=== PATIENT | female | born 1995 | race Caucasian/White ===

== ENCOUNTER 2017-04-24 02:07 | Emergency (ER) | payer OTHER ==
[2017-04-24 03:01] VITALS: BMI 31.4
--- NOTE | 2017-04-24 03:10 | PDOC ---
History of Present Illness - General History Source: Patient Exam Limitations: No Limitations - History of Present Illness Initial Comments: 04/24/17 03:28 The patient is a 21 year old female with a significant PMH of asthma and anemia who presents to the emergency department with fever TMax 102.8, generalized body aches, sore throat, 3 episodes of NB, NB vomit, cough and runny nose for the past three days. The patient notes mild pain when swallowing and has been unable to tolerate fluid intake. The patient states she has not taken any medications. The patient denies any sick contacts. The patient reports her LMP was in January. The patient denies chest pain, shortness of breath, headache and dizziness. Denies chills, nausea, diarrhea and constipation. Denies dysuria, frequency, urgency and hematuria. Allergies: NKA Past surgical history: None reported. Social history: No reported alcohol, cigarette, or drug use. PCP: Dr. Reese <Sophie Vallecillo - Last Filed: 04/24/17 03:24> <Jayda Thompson - Last Filed: 04/25/17 04:34> - General Chief Complaint: SIRS, Suspected/Possible Stated Complaint: FEVER/ VOMITING Time Seen by Provider: 04/24/17 02:49 Past History <Sophie Vallecillo - Last Filed: 04/24/17 03:24> - Suicide/Smoking/Psychosocial Hx Smoking History: Never smoked Have you smoked in the past 12 months: No Information on smoking cessation initiated: No Hx Alcohol Use: No Drug/Substance Use Hx: No <Jayda Thompson - Last Filed: 04/25/17 04:34> - Past Medical History Allergies/Adverse Reactions: Allergies Allergy/AdvReac Type Severity Reaction Status Date / Time No Known Allergies Allergy Verified 04/24/17 02:50 Home Medications: Ambulatory Orders Ibuprofen [Motrin -] 600 mg PO TID #21 tablet 04/24/17 Review of Systems - Review of Systems Able to Perform ROS?: Yes Comments:: 04/24/17 03:24 GENERAL/CONSTITUTIONAL: (+) Fever. (+) Generalized body aches. No chills. No weakness. HEAD, EYES, EARS, NOSE AND THROAT: (+) Sore throat. No change in vision. No ear pain or discharge. No sore throat. CARDIOVASCULAR: No chest pain or shortness of breath. RESPIRATORY: (+) Cough. (+) Runny nose. No wheezing or hemoptysis. GASTROINTESTINAL: No nausea, vomiting, diarrhea or constipation. GENITOURINARY: No dysuria, frequency, or change in urination. MUSCULOSKELETAL: No joint or muscle swelling or pain. No neck or back pain. SKIN: No rash NEUROLOGIC: No headache, vertigo, loss of consciousness, or change in strength/ sensation. ENDOCRINE: No increased thirst. No abnormal weight change. HEMATOLOGIC/LYMPHATIC: No anemia, easy bleeding, or history of blood clots. ALLERGIC/IMMUNOLOGIC: No hives or skin allergy. <Sophie Vallecillo - Last Filed: 04/24/17 03:24> *Physical Exam - Vital Signs Last Vital Signs Temp Pulse Resp BP Pulse Ox 102.8 F H 119 H 22 110/71 100 04/24/17 02:47 04/24/17 02:47 04/24/17 02:47 04/24/17 02:47 04/24/17 02:47 - Physical Exam Comments: 04/24/17 03:28 GENERAL: Awake, alert, and fully oriented, in no acute distress HEAD: No signs of trauma EYES: PERRLA, EOMI, sclera anicteric, conjunctiva clear ENT: Auricles normal inspection, hearing grossly normal, nares patent, oropharynx clear without exudates. Moist mucosa NECK: Normal ROM, supple, no lymphadenopathy, JVD, or masses LUNGS: Breath sounds equal, clear to auscultation bilaterally. No wheezes, and no crackles HEART: Regular rate and rhythm, normal S1 and S2, no murmurs, rubs or gallops ABDOMEN: Soft, nontender, normoactive bowel sounds. No guarding, no rebound. No masses EXTREMITIES: Normal range of motion, no edema. No clubbing or cyanosis. No cords, erythema, or tenderness NEUROLOGICAL: Cranial nerves II through XII grossly intact. Normal speech, normal gait SKIN: Warm, Dry, normal turgor, no rashes or lesions noted. <Sophie Vallecillo - Last Filed: 04/24/17 03:24> - Vital Signs Last Vital Signs Temp Pulse Resp BP Pulse Ox 102.8 F H 119 H 22 110/71 100 04/24/17 02:47 04/24/17 02:47 04/24/17 02:47 04/24/17 02:47 04/24/17 02:47 <Jayda Thompson - Last Filed: 04/25/17 04:34> ED Treatment Course - LABORATORY CBC & Chemistry Diagram: 04/24/17 03:30 04/24/17 04:00 <Jayda Thompson - Last Filed: 04/25/17 04:34> Medical Decision Making - Medical Decision Making 04/25/17 04:33 Pt comes with fever and feeling ill. SHe has a positive strep throat. CXR is normal. Pt appears well otherwise. She is febrile and weak as she is dehydrated and she has taken nothing for the fever. Pt was treated here with LA bicillin and IV hydration and analgesics and antipyretics. She is stable and improved after treatment and she is ready to go home. <Jayda Thompson - Last Filed: 04/25/17 04:34> *DC/Admit/Observation/Transfer - Attestations Scribe Attestion: 04/24/17 03:28 Documentation prepared by Sophie Vallecillo, acting as electromedical service engineer for Jayda Thompson MD. <Sophie Vallecillo - Last Filed: 04/24/17 03:24> - Discharge Dispostion Admit: No <Jayda Thompson - Last Filed: 04/25/17 04:34> Diagnosis at time of Disposition: Strep throat - Discharge Dispostion Disposition: HOME Condition at time of disposition: Improved - Prescriptions Prescriptions: Ibuprofen [Motrin -] 600 mg PO TID #21 tablet - Referrals Referrals: Luis Johnson MD [Primary Care Provider] - - Patient Instructions Printed Discharge Instructions: DI for Strep Throat - Post Discharge Activity Forms/Work/School Notes: Back to Work
[2017-04-24] MEDS ORDERED: SODIUM CHLORIDE 0.9% 500 ML INFUS.BAG IV ONE (03:11)
[2017-04-24] MEDS ORDERED: IBUPROFEN 600 MG TABLET (FP) PO ONE (03:12)
[2017-04-24] MEDS ORDERED: ACETAMINOPHEN 1000 MG/100 ML VIAL (NON FORMULARY) IVPB ONE (03:12)
[2017-04-24] MEDS ORDERED: ACETAMINOPHEN INJECTION 100 ML IVPB ONE (03:48)
[2017-04-24 04:02] LABS: BASO % 0.3 % (0-2.0); EOS % 0.2 % (0-4.5); HEMATOCRIT 32.2 % (32.4-45.2); HEMOGLOBIN 9.9 GM/dL (10.7-15.3); LYMPH % 10.6 % (8-40); MCHC 30.7 g/dl (32.0-36.0); MEAN CELL VOLUME 63.1 fl (80-96); MEAN PLT VOLUME 9.1 fl (7.5-11.1); MONO % 8.7 % (3.8-10.2); NEUT % 80.2 % (42.8-82.8); PLATELET COUNT 286 K/MM3 (134-434); RBC 5.11 M/mm3 (3.60-5.2); RDW 19.7 % (11.6-15.6); WHITE BLOOD COUNT 10.9 K/mm3 (4.0-10.0)
[2017-04-24 04:03] LABS: MCH 19.3 pg (25.7-33.7)
[2017-04-24 04:18] LABS: INR 1.29 (0.82-1.09); PROTHROMBIN TIME (PATIENT) 14.6 SEC (9.98-11.88)
[2017-04-24] MEDS ORDERED: PENICILLIN G BENZATHINE 1,200,000 UNIT/2 ML PFS IM ONE (04:25)
[2017-04-24] MEDS ORDERED: PENICILLIN G BENZATHINE 2,400,000 UNIT/4 ML PFS ONE (04:29)
[2017-04-24 04:44] LABS: ALBUMIN 3.6 g/dl (3.4-5.0); ALK PHOS 94 U/L (45-117); ANION GAP 9 (8-16); BILIRUBIN,TOTAL 0.5 mg/dL (0.2-1.0); BLOOD UREA NITROGEN 13 mg/dL (7-18); CALCIUM 8.1 mg/dL (8.5-10.1); CHLORIDE 105 mmol/L (98-107); CO2 22 mmol/L (21-32); CREATININE 0.8 mg/dL (0.55-1.02); GLUCOSE,RANDOM 86 mg/dL (74-106); POTASSIUM 3.9 mmol/L (3.5-5.1); SGOT/AST 25 U/L (15-37); SGPT/ALT 25 U/L (12-78); SODIUM 136 mmol/L (136-145); TOT PROT 8.2 g/dl (6.4-8.2)
[2017-04-24 05:56] VITALS: BP 103/65; PULSE 99; TEMP 99
== END 2017-04-24 05:56 | disposition home or self-care (01) ==
LOC: JER 02:07 → SUPCPDRO 02:07 → JER 05:56
PROC: 3E033NZ Introduction of Analgesics, Hypnotics, Sedatives into Peripheral Vein, Percutaneous Approach (ICD-10-PCS; principal; 2017-04-24)
PROC: 3E02329 Introduction of Other Anti-infective into Muscle, Percutaneous Approach (ICD-10-PCS; 2017-04-24)
DX: J02.0 Streptococcal pharyngitis (principal); B95.0 Streptococcus, group A, as the cause of diseases classified elsewhere
CPT/HCPCS: 36415; 71046-TC-FY; 80053; 84703; 85025; 85610; 85730; 87070; 87430; 96372; 96374; 99283-25

== ENCOUNTER 2018-10-02 14:45 | Emergency (ER) | payer OTHER ==
[2018-10-02 15:02] VITALS: BP 118/67; PULSE 70; TEMP 98.2; BMI 36.6
--- NOTE | 2018-10-02 15:02 | PDOC ---
Rapid Medical Evaluation Medical Evaluation: Allergies Allergy/AdvReac Type Severity Reaction Status Date / Time pineapple Allergy Mild Itching Verified 12/18/17 18:44 I have performed a brief in-person evaluation of this patient. The patient presents with a chief complaint of: c/o lower abd pain and back pain x 2 weeks; gave in january and states has not yet had her menstrual cycles; denies hx of PCOS; is not on control; denies n/v/d, urinary complaints; no abd surgeries Pertinent physical exam findings: In nad, abdomen soft/NT I have ordered the following: labs The patient will proceed to the ED for further evaluation. 10/02/18 15:00
--- NOTE | 2018-10-02 18:04 | PDOC ---
Documentation entered by Candi Diaz SCRIBE, acting as scribe for Ramírez Garcia MD. Ramírez Garcia MD: This documentation has been prepared by the noraibe, Candi Diaz SCRIBE, under my direction and personally reviewed by me in its entirety. I confirm that the documentation accurately reflects all work, treatment, procedures, and medical decision making performed by me. Attending Attestation - Resident Resident Name: Odessa Ledesma - ED Attending Attestation I have performed the following: I have examined & evaluated the patient, The case was reviewed & discussed with the resident, I agree w/resident's findings & plan, Exceptions are as noted - HPI HPI: 10/02/18 17:56 The patient is a 23-year-old female, , with a past medical history of von willebrand disease and asthma, who presents to the ED with suprapubic pain. The patient describes the pain as intermittent, crampy in sensation, lasting a few hours at a time, with radiation to her back, exacerbated when she lies on her side, and accompanied by intermittent nausea. She states that the pain is similar to her period pain; LMP was 8 month ago. She has not taken a home test. She denies any vaginal bleeding or vaginal discharge. The patient denies fevers, chills, nausea, vomiting, diarrhea, or abdominal pain. Denies any chest pain, palpitations or shortness of breath. Denies any urinary symptoms. Allergies: Pineapple PCP: Dr. Johnson - Physicial Exam PE: 10/02/18 17:59 GENERAL: Awake, alert, and fully oriented, in no acute distress. HEAD: No signs of trauma EYES: PERRLA, EOMI, sclera anicteric, conjunctiva clear ENT: Auricles normal inspection, hearing grossly normal, nares patent, oropharynx clear without exudates. Moist mucosa NECK: Nontender, no stepoffs, Normal ROM, supple, no lymphadenopathy, JVD, or masses LUNGS: Breath sounds equal, clear to auscultation bilaterally. No wheezes, and no crackles HEART: Regular rate and rhythm, normal S1 and S2, no murmurs, rubs or gallops ABDOMEN: + suprapubic and LLQ TTP, normoactive bowel sounds. No guarding, no rebound. No masses EXTREMITIES: Normal range of motion, no edema. No clubbing or cyanosis. No cords, erythema, or tenderness NEUROLOGICAL: Cranial nerves II through XII intact. 5/5 strength and sensation in all extremities, Normal speech, normal gait, normal cerebellar function SKIN: Warm, Dry, normal turgor, no rashes or lesions noted. - Medical Decision Making 10/02/18 18:05 23 F with suprapubic pain and LLQ pain. Will check test to r/o ectopic. Also consider torsion. Pt with no RLQ pain to suggest appy. - Labs, UA, UPT - TVUS - COnsider CT Pt signed out to Dr. Long at 7PM, pending labs, US, and re-evaluation.
[2018-10-02] MEDS ORDERED: ACETAMINOPHEN 500 MG TABLET (FP) PO ONE (18:06)
[2018-10-02 18:22] LABS: URINE APPEARANCE CLEAR; URINE BILIRUBIN NEGATIVE (NEGATIVE); URINE COLOR YELLOW; URINE GLUCOSE (UA) NEGATIVE (NEGATIVE); URINE KETONE NEGATIVE (NEGATIVE); URINE LEUK ESTERASE NEGATIVE (NEGATIVE); URINE NITRITE NEGATIVE (NEGATIVE); URINE PROTEIN NEGATIVE (NEGATIVE); URINE UROBILINOGEN 0.2 mg/dL (0.2-1.0)
[2018-10-02] MEDS ORDERED: ACETAMINOPHEN 325 MG TABLET (FP) ONE (18:27)
[2018-10-02 19:37] LABS: BASO % 0.6 % (0-2.0); HEMATOCRIT 44.4 % (32.4-45.2); HEMOGLOBIN 14.7 GM/dL (10.7-15.3); LYMPH % 45.8 % (8-40); MCH 27.6 pg (25.7-33.7); MCHC 33.1 g/dl (32.0-36.0); MEAN CELL VOLUME 83.5 fl (80-96); MEAN PLT VOLUME 10.3 fl (7.5-11.1); MONO % 10.5 % (3.8-10.2); NEUT % 40.1 % (42.8-82.8); PLATELET COUNT 257 K/MM3 (134-434); RBC 5.31 M/mm3 (3.60-5.2); RDW 14.2 % (11.6-15.6); WHITE BLOOD COUNT 4.6 K/mm3 (4.0-10.0)
--- NOTE | 2018-10-02 19:41 | PDOC ---
History of Present Illness - General Chief Complaint: Pain Stated Complaint: BACK/ABD PAIN Time Seen by Provider: 10/02/18 14:59 - History of Present Illness Initial Comments: 10/02/18 19:31 23yo F hx Von Willebrand disease and asthma presents from home c/o lower abdominal pain x2wks and amenorrhea since of daughter 02/11/19. Pt had normal with vaginal delivery on 02/11/19. Pt did take unknown medication during to prevent bleeding due to VWD. Since the , pt has not had a menstrual period but has been sexually active without use of contraception. Pt states periods were normal monthly prior to . Pt denies any possibility of STD. Pt has not taken test because last time she was the urine test was negative but the blood test was positive. Pt c/o suprapubic pain, L>R, radiating to b/l flanks, worse at night but happens intermittently both day and night randomly, daily, lasting a few hours each time, temporarily improved with tylenol, cramp type like periods , worse when lying on side. Endorses intermittent nausea as well. States these sx feel exactly like how she felt when she was before. Endorses weight gain and fatigue. Denies dysuria, hematuria, vaginal bleeding, vaginal discharge , vaginal odor, CP, SOB, dizziness, BRITT, D/C, blood in stool, vomiting, F/C. Past History - Past Medical History Allergies/Adverse Reactions: Allergies Allergy/AdvReac Type Severity Reaction Status Date / Time pineapple Allergy Mild Itching Verified 10/02/18 15:03 Home Medications: Ambulatory Orders Doxycycline Hyclate 100 mg PO BID 14 Days #27 capsule 10/02/18 Metronidazole 500 mg PO BID 14 Days #27 tablet 10/02/18 Anemia: Yes Asthma: Yes Cancer: No Cardiac Disorders: No CVA: No COPD: No DVT: No Dementia: No Diabetes: No Dialysis: No GI Disorders: No Disorders: No HTN: No Hypercholesterolemia: No Kidney Stones: No Liver Disease: No Psychiatric Problems: No Seizures: No Thyroid Disease: No Lung CA: No - Suicide/Smoking/Psychosocial Hx Smoking History: Never smoked Have you smoked in the past 12 months: No Information on smoking cessation initiated: No Hx Alcohol Use: No Drug/Substance Use Hx: No Substance Use Type: None Review of Systems - Review of Systems Comments:: 10/02/18 19:46 Constitutional: Negative for chills, fever, fatigue. HENT: Negative for sore throat, rhinorrhea, congestion. Eyes: Negative for visual disturbance. Respiratory: Negative for shortness of breath, cough, and wheezing. Cardiovascular: Negative for chest pain, palpitations, and leg swelling. Gastrointestinal: Positive for abdominal pain and nausea. Negative for blood in stool, constipation, diarrhea, and vomiting. Genitourinary: Positive for b/l flank pain. Negative for dysuria and hematuria. Musculoskeletal: Negative for myalgias, back pain, and neck pain. Skin: Negative for rash. Neurological: Negative for light-headedness, dizziness, syncope, weakness, numbness and headaches. Psychiatric/Behavioral: Negative for behavioral problems and confusion. *Physical Exam - Vital Signs Last Vital Signs Temp Pulse Resp BP Pulse Ox 98.2 F 70 19 118/67 100 10/02/18 15:00 10/02/18 15:00 10/02/18 15:00 10/02/18 15:00 10/02/18 15:00 - Physical Exam Comments: 10/02/18 19:47 Gen: Alert, NAD, comfortable-appearing, obese HEENT: PERRL, EOMI, MMM, NCAT. No conjunctival pallor. Sclera are non-icteric. Oropharynx is clear. CV: Regular rate and rhythm. No murmurs, rubs, or gallops. PULM: No resp distress. CTAB, no wheezes, rales, or rhonchi. ABD: +suprapubic TTP L/central >R, nongravid, soft, ND, no rebound tenderness or guarding, no CVA tenderness. BACK: No TTP of c/t/l-spine. No step-offs or deformities. MSK: No bony deformities. 2+ pulses in all extremities. NEURO: AAOx3. PERRL. No gross CN deficits. Strength and sensation grossly intact throughout. EXTREMITIES: No cyanosis. No clubbing. No edema. No calf tenderness. PSYCH: Normal mood and thought pattern. SKIN: Warm and dry. Normal capillary refill. No rashes. No jaundice. ED Treatment Course - LABORATORY CBC & Chemistry Diagram: 10/02/18 18:55 10/02/18 18:55 - ADDITIONAL ORDERS Additional order review: Laboratory Results 10/02/18 10/02/18 17:50 17:50 Urine Color Yellow Urine Appearance Clear Urine pH 6.0 Ur Specific [place] 1.022 Urine Protein Negative Urine Glucose (UA) Negative Urine Ketones Negative Urine Blood Negative Urine Nitrite Negative Urine Bilirubin Negative Urine Urobilinogen 0.2 Ur Leukocyte Esterase Negative Urine HCG, Qual Negative - RADIOLOGY Radiology Studies Ordered: Category Date Time Status TRANSVAGINAL ULTRASOUND US [US] Stat Ultrasound 10/02/18 19:20 Ordered - Medications Given in the ED: ED Medications Discontinued Medications Generic Name Dose Route Start Last Admin Trade Name Freq PRN Reason Stop Dose Admin Acetaminophen 1,000 mg 10/02/18 18:06 10/02/18 18:40 Tylenol - PO 10/02/18 18:07 1,000 mg ONCE ONE Administration Medical Decision Making - Medical Decision Making 10/02/18 19:41 23yo F hx Von Willebrand disease and asthma presents from home with suprapubic and LLQ intermittent cramping abdominal pain and TTP radiating to b/ l flanks x2wks and amenorrhea since of daughter 02/11/19. Hemodynamically stable, afebrile, nongravid abdomen, suprapubic TTP L/central>R. Most likely pelvic etiology: consider IUP vs ectopic vs ovarian torsion vs cyst vs fibroids vs urethritis/cervicitis/PID - labs, TVUS, pelvic. If negative, consider renal or GI etiology including kidney stones and colitis, though less likely due to suprapubic location of pain and lack of diarrhea/constipation, vomiting, hx kidney stones. -CBC, CMP, Lipase, Coags, T&S, UPreg, UA/UC, HCG quant -Abdominal POCUS, Transvaginal US, pelvic exam -Tylenol -Reassess and consider CT if w/u negative -Dispo: pending w/u Abdominal POCUS done: no IUP visualized, bladder normal, possible endometrial thickening seen US used for vascular access - successful by Dr Garcia. Labs sent. Urine reviewed: negative Upreg, negative for signs of UTI or blood 10/02/18 20:56 Labs reviewed. Serum negative. Obtained consent for pelvic exam and STI testing. 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 Copious white malodorous discharge seen in vault and coming out, collected for GC amplification. Rugae felt on superior vaginal vault, no masses appreciated, os closed, no blood or soft tissue abnormalities seen, +CMT , no adnexal tenderness. Pending TVUS. 10/02/18 21:41 TVUS shows thickened endometrium. Will f/u with neuropsychiatric aide. Malodorous discharge and +CMT concerning for PID vs trich vs BV. Will tx empirically outpatient with ceftriaxone, doxy, and metronidazole. Reevaluated pt. Denies abdominal pain at this time, improved with tylenol. No abdominal TTP. Pt ready to go home. Given discharge instructions including to abstain from sexual activity, f/u with GC results, take all abx as prescribed, abstain from alcohol while taking abx, and f/u with neuropsychiatric aide this week. Return precautions given. Pt understands all dc instructions and all questions were answered. *DC/Admit/Observation/Transfer Diagnosis at time of Disposition: Pelvic pain, Vaginal discharge - Discharge Dispostion Disposition: HOME Condition at time of disposition: Improved Decision to Admit order: No - Prescriptions Prescriptions: Doxycycline Hyclate 100 mg PO BID 14 Days #27 capsule Metronidazole 500 mg PO BID 14 Days #27 tablet - Referrals Referrals: Luis Johnson MD [Primary Care Provider] - Marcelina Tipton MD [Staff Physician] - - Patient Instructions Printed Discharge Instructions: DI for Vaginal Discharge, DI for Pelvic Pain Additional Instructions: You have been seen in the Emergency Department for abdominal pain. Your labs and ultrasound show no signs of or emergent condition such as ovarian torsion. Your pelvic exam demonstrated a vaginal discharge and pelvic pain concerning for PID (Pelvic Inflammatory Disease) or an infection of your pelvic structures. We have given you some antibiotics here and prescribed you additional antibiotics. Take the antibiotics as directed and make sure you take them all, even if you start to feel better. Do not drink alcohol while taking the medications. While you are being treated, do not have unprotected sex. We have sent out a test for Chlamydia and Gonorrhea, and the results will come back in a few days. You will be called with the results of the tests. If you don't receive a call back, ask for the results at your Stage Set Designer visits this week. Do not have unprotected sex until you receive these results and have received approval from your Stage Set Designer. We have given you a referral to a neuropsychiatric aide, Dr. Tipton. Call her office in the morning to make a follow-up appointment for this week. If you experience pain, you can take Tylenol or Ibuprofen as directed on the medication bottle, but do not exceed 3g of Ibuprofen or 4g of Tylenol a day. Return to the ED immediately if you experience pain not controlled by over the counter medications, vaginal bleeding, fever, dizziness, severe vomiting, or any other new or worsening symptom. - Post Discharge Activity Forms/Work/School Notes: Back to Work
[2018-10-02 20:07] LABS: BILIRUBIN,TOTAL 0.4 mg/dL (0.2-1); BLOOD UREA NITROGEN 9.3 mg/dL (7-18); CALCIUM 9.7 mg/dL (8.5-10.1); CREATININE 0.7 mg/dL (0.55-1.3); POTASSIUM 3.5 mmol/L (3.5-5.1); TOT PROT 9.1 g/dl (6.4-8.2)
[2018-10-02] MEDS ORDERED: metroNIDAZOLE 250 MG TABLET PO ONE (21:18)
[2018-10-02] MEDS ORDERED: DOXYCYCLINE HYCLATE 100 MG CAPSULE PO ONE ×2 (21:18→21:53)
[2018-10-02] MEDS ORDERED: metroNIDAZOLE 250 MG TABLET ONE (21:54)
[2018-10-02 22:35] LABS: INR 1.02 (0.83-1.09)
[2018-10-02 22:37] LABS: ACTIVATED PTT 34.7 SECONDS (25.2-36.5)
== END 2018-10-02 22:14 | disposition home or self-care (01) ==
LOC: JER 14:45
PROC: 3E02329 Introduction of Other Anti-infective into Muscle, Percutaneous Approach (ICD-10-PCS; principal; 2018-10-02)
PROC: BW40ZZZ Ultrasonography of Abdomen (ICD-10-PCS; 2018-10-02)
DX: R10.2 Pelvic and perineal pain (principal); N89.8 Other specified noninflammatory disorders of vagina
CPT/HCPCS: 36415; 76830-TC; 76942; 80053; 81003; 83690; 84702; 84703; 85025; 85610; 85730; 86850; 86870; 86900; 86901; 86902; 87086; 87491; 87591; 96372; 99282-25

== ENCOUNTER 2019-01-14 00:50 | Inpatient (IN) | payer OTHER ==
--- NOTE | 2019-01-14 01:39 | PDOC ---
Attending Attestation - Resident Resident Name: Soruav Wahl - ED Attending Attestation I have performed the following: I have examined & evaluated the patient, The case was reviewed & discussed with the resident, I agree w/resident's findings & plan - HPI HPI: 01/14/19 03:52 see resident hpi - Physicial Exam PE: 01/14/19 03:52 agree with resident exam - Medical Decision Making 01/14/19 03:53 23-year-old female with heavy vaginal bleeding due to von Willebrand's Labs do not reveal acute anemia Case discussed with on-call hematology who recommends DDAVP We will hold on medical service for observation for CBC recheck
[2019-01-14 02:36] LABS: HEMATOCRIT 38.8 % (32.4-45.2); MCH 28.3 pg (25.7-33.7); MCHC 33.5 g/dl (32.0-36.0); MEAN CELL VOLUME 84.5 fl (80-96); MEAN PLT VOLUME 10.1 fl (7.5-11.1); PLATELET COUNT 230 K/MM3 (134-434); RBC 4.59 M/mm3 (3.60-5.2); RDW 13.8 % (11.6-15.6); WHITE BLOOD COUNT 7.5 K/mm3 (4.0-10.0)
--- NOTE | 2019-01-14 02:38 | PDOC ---
History of Present Illness - General Chief Complaint: Vaginal Bleeding Stated Complaint: VAGINAL BLEEDING Time Seen by Provider: 01/14/19 01:37 - History of Present Illness Initial Comments: Ms. Talha Matamoros is a 23 y/o female with PMH significant for Von Willebrand's disease (requiring blood transfusions in the past) and asthma, presenting today with vaginal bleeding for the past 3 days. Reports that she has had menorrhagia in the past but that this is new. Reports approx 20 pads per day. Reports dizziness, but denies LOC. Denies chest pain, shortness of breath. Denies nausea/vomiting. Reports abdominal cramping but no other abdominal pain. Past History - Past Medical History Allergies/Adverse Reactions: Allergies Allergy/AdvReac Type Severity Reaction Status Date / Time pineapple Allergy Mild Itching Verified 01/14/19 01:05 Anemia: Yes Asthma: Yes Cancer: No Cardiac Disorders: No CVA: No COPD: No DVT: No Dementia: No Diabetes: No Dialysis: No GI Disorders: No Disorders: No HTN: No Hypercholesterolemia: No Kidney Stones: No Liver Disease: No Psychiatric Problems: No Seizures: No Thyroid Disease: No Lung CA: No - Psycho Social/Smoking Cessation Hx Smoking History: Never smoked Have you smoked in the past 12 months: No Hx Alcohol Use: No Drug/Substance Use Hx: No Substance Use Type: None Review of Systems - Review of Systems Comments:: GENERAL/CONSTITUTIONAL: No fever or chills. No weakness._ HEAD, EYES, EARS, NOSE AND THROAT: No change in vision. No change in hearing. No sore throat._ CARDIOVASCULAR: No chest pain or shortness of breath_ RESPIRATORY: Denies cough, hemoptysis_ GASTROINTESTINAL: No nausea, vomiting, diarrhea or constipation._ GENITOURINARY: No dysuria, frequency, or change in urination. Reports vaginal bleeding. No vaginal discharge. MUSCULOSKELETAL: No joint or muscle swelling or pain. No neck or back pain._ SKIN: No rash_ NEUROLOGIC: No headache, vertigo, loss of consciousness, or change in strength/ sensation. Reports dizziness. ENDOCRINE: No increased thirst. No abnormal weight change_ HEMATOLOGIC/LYMPHATIC: No anemia, easy bleeding, or history of blood clots._ ALLERGIC/IMMUNOLOGIC: No hives or skin allergy._ *Physical Exam - Vital Signs Last Vital Signs Temp Pulse Resp BP Pulse Ox 98.3 F 92 H 18 120/62 97 01/14/19 01:00 01/14/19 01:00 01/14/19 01:00 01/14/19 01:00 01/14/19 01:00 - Physical Exam Comments: GENERAL: Awake, alert, and oriented to person/place/time, in no acute distress_ HEAD: No signs of trauma, normocephalic, atraumatic _ EYES: PERRLA, EOMI, sclera anicteric, conjunctiva clear_ ENT: Hearing grossly normal, nares patent, oropharynx clear without exudates. No uvular deviation. Moist mucosa_ NECK: Normal ROM, supple, no lymphadenopathy, JVD, or masses_ LUNGS: No distress, speaks in full sentences, clear to auscultation bilaterally _ HEART: Regular rate and rhythm, normal S1 and S2, no murmurs appreciated, peripheral pulses normal and equal bilaterally._ ABDOMEN: Soft, nontender, normoactive bowel sounds. No guarding, no rebound. No masses_ EXTREMITIES: Normal inspection, Normal range of motion, no edema. No clubbing or cyanosis_ NEUROLOGICAL: Cranial nerves II through XII grossly intact. Normal speech, normal gait, no focal sensorimotor deficits _ SKIN: Warm, Dry, normal turgor, no rashes or lesions noted_ PELVIC: External exam shows no ulcers, lesions, rash. Fresh blood noted in the vaginal vault and in the posterior and lateral fornices. Os closed. No CMT. No adnexal tenderness bilaterally. ED Treatment Course - LABORATORY CBC & Chemistry Diagram: 01/15/19 12:53 01/16/19 07:09 Medical Decision Making - Medical Decision Making 23F hx of von Willebrand's disease presenting with vaginal bleeding x3 days. 01/14/19 02:57 D/w hematology (Dr. Santiago) who recommends DDAVP and heme f/u after d/c. -30 mcg DDAVP 01/14/19 03:30 D/w hospitalist who agrees to accept the patient for admission. Discharge - Discharge Information Problems reviewed: Yes Clinical Impression/Diagnosis: Vaginal bleeding Condition: Stable - Admission Yes - Follow up/Referral - Patient Discharge Instructions - Post Discharge Activity
[2019-01-14 02:48] LABS: PROTHROMBIN TIME (PATIENT) 11.8 SEC (9.7-13.0)
[2019-01-14 02:58] LABS: ALBUMIN 3.5 g/dl (3.4-5.0); BILIRUBIN,TOTAL 0.2 mg/dL (0.2-1); BLOOD UREA NITROGEN 8.3 mg/dL (7-18); CALCIUM 8.5 mg/dL (8.5-10.1); CREATININE 0.8 mg/dL (0.55-1.3); POTASSIUM 3.5 mmol/L (3.5-5.1); TOT PROT 7.8 g/dl (6.4-8.2)
[2019-01-14] MEDS ORDERED: DESMOPRESSIN ACETATE 4 MCG/ML AMP IVPB ONE (03:09)
--- NOTE | 2019-01-14 04:39 | PN ---
Teaching Attending Note Name of Resident: Norma Nolan ATTENDING PHYSICIAN STATEMENT I saw and evaluated the patient. I reviewed the resident's note and discussed the case with the resident. I agree with the resident's findings and plan as documented. SUBJECTIVE: 23-year-old woman with von Willebrand deficiency discovered about 1 year ago at [facility] followed by several admissions to [facility] for heavy menses requiring blood transfusion, presented complaining of very heavy menses for the past 2 days. She has been going through many pads a day, even having to change them every 10 minutes or so. Now resorted to wearing diaper. Denied bleeding from other part of her body. OBJECTIVE: Last Vital Signs Temp Pulse Resp BP Pulse Ox 98.3 F 92 H 18 120/62 97 01/14/19 01:00 01/14/19 01:00 01/14/19 01:00 01/14/19 01:00 01/14/19 01:00 GENERAL: Obese not in acute distress HEENT: Normocephalic, atraumatic. PERRLA, EOMI. No conjunctival pallor. Sclera are non- icteric. Moist mucous membranes. Oropharynx is clear. NECK: Supple. Full ROM. No JVD. Carotid pulses 2+ and symmetric, without bruits. No thyromegaly. No lymphadenopathy. CARDIOVASCULAR: Regular rate and rhythm. No murmurs, rubs, or gallops. Distal pulses are 2+ and symmetric. PULMONARY: No evidence of respiratory distress. Lungs clear to auscultation bilaterally. No wheezing, rales or rhonchi. ABDOMINAL: Soft. Non-tender. Non-distended. No rebound or guarding. No organomegaly. Normoactive bowel sounds. MUSCULOSKELETAL Normal range of motion at all joints. No bony deformities or tenderness. No CVA tenderness. EXTREMITIES: No cyanosis. No clubbing. No edema. No calf tenderness. SKIN: Warm and dry. Normal capillary refill. No rashes. No jaundice. PSYCHIATRIC: Cooperative. Good eye contact. Appropriate mood and affect. Abnormal Lab Results 01/14/19 02:20 Chloride 108 H Anion Gap 6 L Random Glucose 120 H ASSESSMENT AND PLAN: 23-year-old woman with excessive menstruation likely secondary to von Willebrand factor deficiency. Hemodynamically stable, H&H is stable. Advised to administer DDAVP by hematology. Admit to MedSurg Transvaginal ultrasound Ferrous sulfate supplementation Hematology evaluation DDAVP if continued bleeding Counseled to avoid NSAIDs No blood product transfusion at this time Would monitor CBC every 8 hours SCDs for DVT prophylaxis
--- NOTE | 2019-01-14 05:11 | HP ---
CHIEF COMPLAINT: Vaginal Bleeding PCP: Dr. Johnson HISTORY OF PRESENT ILLNESS: 23 F PMH significant for von Willebrand disease and asthma who presents with 3 days of vaginal bleeding. Patient is on her period which is irregular and has had menorrhagia in the past. However she has never had bleeding like this before. She estimates going through 20+ pads on the first day of her period, she is unable to sleep at night without soaking through the pad and onto her bedsheets. She was using adult diapers to contain the amount of bleeding she is having. Patient is unable to comment on if she has any hematuria or blood in her stools because whenever she uses the bathroom she sees blood in the bowl. Endorses symptoms of weakness and dizziness, but no episodes of loss of consciousness. No chest pain, shortness of breath, or abdominal pain that is not associated with her normal periods. Denies any nausea and vomiting. ER course was notable for: (1) Dr. Santiago (fell cutter for heme-onc) was called and recommended 30 mcg of DDAVP (2) Pelvic exam was performed and showed fresh blood in the vaginal vault (3) EKG showed normal sinus rhythm Recent Travel: None PAST MEDICAL HISTORY: Asthma, and von Willebrand disease PAST SURGICAL HISTORY: none Social History: Smoking:denies Alcohol:denies Drugs: denies Allergies pineapple Allergy (Mild, Verified 01/14/19 01:05) Itching HOME MEDICATIONS: Home Medications Medication Instructions Recorded Doxycycline Hyclate 100 mg PO BID 14 Days #27 capsule 10/02/18 Metronidazole 500 mg PO BID 14 Days #27 tablet 10/02/18 REVIEW OF SYSTEMS CONSTITUTIONAL: generalized weakness, Absent: fever, chills, diaphoresis, malaise, loss of appetite, weight change CARDIOVASCULAR: Absent: chest pain, syncope, palpitations, irregular heart rate, lightheadedness , peripheral edema RESPIRATORY: shortness of breath Absent: cough, dyspnea with exertion, orthopnea, wheezing, stridor, hemoptysis GASTROINTESTINAL: cramping abdominal pain Absent: abdominal distension, nausea, vomiting, diarrhea, constipation, melena , hematochezia GENITOURINARY: Absent: dysuria, frequency, urgency, hesitancy, hematuria, flank pain, genital pain HEMATOLOGIC/IMMUNOLOGIC: prolonged bleeding, Absent: easy bruising, lymphadenopathy, frequent infections NEUROLOGIC: Absent: headache, focal weakness or paresthesias, dizziness, unsteady gait, seizure, mental status changes, bladder or bowel incontinence PHYSICAL EXAMINATION Vital Signs - 24 hr 01/14/19 01:00 Temperature 98.3 F Pulse Rate 92 H Respiratory 18 Rate Blood Pressure 120/62 O2 Sat by Pulse 97 Oximetry (%) GENERAL: Awake, alert, and fully oriented, in no acute distress. HEAD: Normal with no signs of trauma. EYES: Pupils equal, round and reactive to light, extraocular movements intact, sclera anicteric, conjunctiva clear. LUNGS: Breath sounds equal, clear to auscultation bilaterally. No wheezes, and no crackles. No accessory muscle use. HEART: Regular rate and rhythm, normal S1 and S2 without murmur, rub or gallop. ABDOMEN: Soft, nontender, not distended, normoactive bowel sounds, no guarding, no rebound, no masses. UPPER EXTREMITIES: 2+ pulses, warm, well-perfused. No cyanosis. No clubbing. No peripheral edema. LOWER EXTREMITIES: 2+ pulses, warm, well-perfused. No calf tenderness. No peripheral edema. SKIN: Warm, dry, normal turgor, no rashes or lesions noted, normal capillary refill. Laboratory Results - last 24 hr 01/14/19 01/14/19 01/14/19 02:20 02:20 02:20 WBC 7.5 RBC 4.59 Hgb 13.0 Hct 38.8 MCV 84.5 MCH 28.3 MCHC 33.5 RDW 13.8 Plt Count 230 MPV 10.1 PT with INR INR PTT (Actin FS) 31.2 Sodium 140 Potassium 3.5 Chloride 108 H Carbon Dioxide 26 Anion Gap 6 L BUN 8.3 Creatinine 0.8 Est GFR (CKD-EPI)AfAm 122.14 Est GFR (CKD-EPI)NonAf 105.39 Random Glucose 120 H Calcium 8.5 Total Bilirubin 0.2 AST 21 ALT 26 Alkaline Phosphatase 104 Total Protein 7.8 Albumin 3.5 Serum , Qual Blood Type Antibody Screen 01/14/19 01/14/19 01/14/19 02:20 02:20 02:20 WBC RBC Hgb Hct MCV MCH MCHC RDW Plt Count MPV PT with INR 11.80 INR 1.00 PTT (Actin FS) Sodium Potassium Chloride Carbon Dioxide Anion Gap BUN Creatinine Est GFR (CKD-EPI)AfAm Est GFR (CKD-EPI)NonAf Random Glucose Calcium Total Bilirubin AST ALT Alkaline Phosphatase Total Protein Albumin Serum , Qual Negative Blood Type O POSITIVE Antibody Screen Positive ASSESSMENT/PLAN: 23 F with PMH of von Willebrand disease and asthma who presents with 3 days of vaginal bleeding. 1) Vaginal bleeding in the setting of von Willebrand's disease -30 mcg DDAVP given -Trend CBC -F/U transvaginal U/S -Ferrous Sulfate 325 mg PO Daily -NS@ 100 ml/hr -Patient commented on recent usage of aleve. If platelets low will have to transfuse platelets. -No antiplatelet agents. 2) Hx of Asthma -Nebulizers as needed DVT prophylaxis: SCDS F:NS @100 ml/hr E: Trend BMP N: Regular diet Visit type - Emergency Visit Emergency Visit: Yes ED Registration Date: 01/14/19 Care time: The patient presented to the Emergency Department on the above date and was hospitalized for further evaluation of their emergent condition. - New Patient This patient is new to me today: Yes Date on this admission: 01/14/19 - Critical Care Critical Care patient: No ATTENDING PHYSICIAN STATEMENT I saw and evaluated the patient. I reviewed the resident's note and discussed the case with the resident. I agree with the resident's findings and plan as documented. SUBJECTIVE: OBJECTIVE: ASSESSMENT AND PLAN:
[2019-01-14] MEDS: SODIUM CHLORIDE 1,000 ML IV SCH ×2 (05:15→13:42)
[2019-01-14 06:11] LABS: BASO % 0.5 % (0-2.0); EOS % 2.7 % (0-4.5); HEMATOCRIT 36.8 % (32.4-45.2); HEMOGLOBIN 12.6 GM/dL (10.7-15.3); LYMPH % 31.6 % (8-40); MCH 28.8 pg (25.7-33.7); MCHC 34.3 g/dl (32.0-36.0); MEAN CELL VOLUME 83.8 fl (80-96); MONO % 7.6 % (3.8-10.2); NEUT % 57.6 % (42.8-82.8); PLATELET COUNT 226 K/MM3 (134-434); RDW 13.8 % (11.6-15.6); WHITE BLOOD COUNT 6.1 K/mm3 (4.0-10.0)
[2019-01-14 07:29] LABS: ALBUMIN 3.5 g/dl (3.4-5.0); BILIRUBIN,TOTAL 0.2 mg/dL (0.2-1); BLOOD UREA NITROGEN 9.5 mg/dL (7-18); CALCIUM 8.5 mg/dL (8.5-10.1); CREATININE 0.7 mg/dL (0.55-1.3); POTASSIUM 3.8 mmol/L (3.5-5.1); TOT PROT 7.5 g/dl (6.4-8.2)
[2019-01-14] MEDS ORDERED: ACETAMINOPHEN 500 MG TABLET (FP) PO ONE (09:48)
[2019-01-14] MEDS ORDERED: FERROUS SO4 325 MG TABLET (FP) ONE (09:57)
[2019-01-14] MEDS ORDERED: ACETAMINOPHEN 500 MG TABLET (FP) ONE (09:58)
[2019-01-14] MEDS: FERROUS SO4 325 MG TABLET (FP) PO SCH (10:02)
--- NOTE | 2019-01-14 14:57 | HOSP ---
Subjective - Review of Symptoms Events since last encounter: patient was seen and examined. she has abd cramps. cont to have vaginal bleed. has no fever or chills. reports that bleeding is on and off since november. started 2 days ago . She did see heme in [place] x 2 but then she stopped. PE: NAD comfortable CV: RRR Lungs: CTAB Abd:soft, TTP in suprapubic area. no rebound , nl BS Ext : No edema or erythema A/P : 23 y/o lady with h/o Von Willbrand disease who presented with vaginal bleeding. 1- Vaginal bleeding, due to coagulopathy - received Desmopressin at 4 am - will probably repeat at 4 pm. - a call placed to Dr. Douglas . awaiting response - repeat CBC - IVF and transfusion if needed - US is notable for endometrial thickening which might be physiological - HEEL DIPPER consult Scds Physical Examination Vital Signs: Vital Signs Temperature 98.1 F 01/14/19 07:40 Pulse Rate 83 01/14/19 07:40 Respiratory Rate 17 01/14/19 07:40 Blood Pressure 103/62 01/14/19 07:40 O2 Sat by Pulse Oximetry (%) 97 01/14/19 07:40 Labs: CBC, BMP 01/14/19 05:20 01/14/19 05:20
[2019-01-14] MEDS: ACETAMINOPHEN 325 MG TABLET (FP) PO PRN ×2 (15:40→20:57)
[2019-01-14 15:53] VITALS: BMI 36.0
[2019-01-14 15:59] LABS: HEMATOCRIT 34.6 % (32.4-45.2); HEMOGLOBIN 11.5 GM/dL (10.7-15.3); MCH 28.3 pg (25.7-33.7); MCHC 33.3 g/dl (32.0-36.0); MEAN CELL VOLUME 85.2 fl (80-96); MEAN PLT VOLUME 10.6 fl (7.5-11.1); PLATELET COUNT 211 K/MM3 (134-434); RBC 4.06 M/mm3 (3.60-5.2); RDW 14.1 % (11.6-15.6); WHITE BLOOD COUNT 5.2 K/mm3 (4.0-10.0)
[2019-01-14] MEDS ORDERED: FLU VACCINE QUAD 60 MCG/0.5 ML (MDV 19-20) IM ONE (16:09)
[2019-01-14] MEDS ORDERED: TRANEXAMIC ACID 1000 MG/10 ML VIAL IVPUSH ONE (18:25)
[2019-01-14] MEDS ORDERED: TRANEXAMIC ACID - 1,000 MG in SODIUM CHLORIDE 100 ML IVPB ONE (18:30)
--- NOTE | 2019-01-14 18:33 | CONSULT ---
Consult Consult Specialty:: Hematology Referred by:: Dr. Caicedo Reason for Consultation:: Von Willebrand Disease - History of Present Illness Chief Complaint: Menorrhagia History of Present Illness: 23F with VWD admitted with menorrhagia x 3 days. Pt has mostly been followed at [facility] with poor follow-up. 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 Has not had RIPA, DDAVP challenge or genetic testing. Plt counts normal. Has required transfusion in the past due to heavy menstrual periods. Reports that periods have been heavy since placement of IUD in 2017 (has since been removed). Current episode is heavier than usual. Endorses occasional epistaxis. No history of other significant bleeding. Has never had surgeries or dental extractions. Delivered a baby in 2018 with Humate P and TXA pre-delivery (developed a brisk bleed due to retained placenta that was quickly controlled). Pt received DDAVP 30 mcg in ED. Reports continued bleeding. Has been wearing diapers as pads not enough. Hgb 13-->11.5 - Past Medical History ...LMP: 01/11/19 ...: No - Alcohol/Substance Use Hx Alcohol Use: No - Smoking History Smoking history: Never smoked Have you smoked in the past 12 months: No Home Medications - Allergies Allergies/Adverse Reactions: Allergies Allergy/AdvReac Type Severity Reaction Status Date / Time pineapple Allergy Mild Itching Verified 01/14/19 01:05 Review of Systems - Review of Systems Constitutional: reports: Weakness (resolved) Cardiovascular: reports: No Symptoms Respiratory: reports: No Symptoms Gastrointestinal: reports: No Symptoms Genitourinary: reports: Vaginal Bleeding Physical Exam Vital Signs: Vital Signs Temperature 98.0 F 01/14/19 11:49 Pulse Rate 81 01/14/19 11:49 Respiratory Rate 17 01/14/19 15:58 Blood Pressure 111/67 01/14/19 11:49 O2 Sat by Pulse Oximetry (%) 97 01/14/19 15:58 Constitutional: Yes: No Distress Eyes: Yes: Conjunctiva Clear Cardiovascular: Yes: Regular Rate and Rhythm Respiratory: Yes: Regular, CTA Bilaterally Gastrointestinal: Yes: Soft. No: Distention, Tenderness Edema: No Labs: CBC, BMP 01/14/19 15:00 01/14/19 05:20 Assessment/Plan 23F with VWD (thought to be VWD Type 2A based on low Rco/Ag ratio ( in 2017 ) and absence of high and intermediate molecular weight multimers) admitted with menorrhagia x 3 days. S/p DDAVP overnight but with continued bleeding. Slight drop in Hgb, 13-->11.5. Recommend a trial of tranexamic acid 1,000 mg IV (PO not available), one dose ordered. If no improvement in bleeding, can continue every 8 hours. Needs follow-up with hematology for further evaluation of VWD (genetic testing, RIPA, ddavp challenge) If willing, can f/u at [facility] Will continue to follow
[2019-01-15] MEDS: SODIUM CHLORIDE 1,000 ML IV SCH ×3 (00:38→11:34)
[2019-01-15] MEDS: ACETAMINOPHEN 325 MG TABLET (FP) PO PRN ×3 (05:11→18:04)
--- NOTE | 2019-01-15 08:24 | PN ---
Progress Note (short form) - Note Progress Note: shipwright consult patient seen and examined hx of menorrhagia normal TVS advised medroxyprogestrone 10 mg for 10 days . follow up in [facility] after discharge
[2019-01-15 08:28] LABS: HEMATOCRIT 34.9 % (32.4-45.2); HEMOGLOBIN 11.6 GM/dL (10.7-15.3); MCH 28.4 pg (25.7-33.7); MCHC 33.4 g/dl (32.0-36.0); MEAN CELL VOLUME 84.9 fl (80-96); MEAN PLT VOLUME 10.1 fl (7.5-11.1); PLATELET COUNT 209 K/MM3 (134-434); RDW 14.3 % (11.6-15.6); WHITE BLOOD COUNT 3.8 K/mm3 (4.0-10.0)
[2019-01-15] MEDS ORDERED: PT OWN MED DRAWER 7, Y5N ONE (09:43)
[2019-01-15] MEDS: FERROUS SO4 325 MG TABLET (FP) PO SCH (09:46)
[2019-01-15] MEDS ORDERED: TRANEXAMIC ACID 1000 MG/10 ML VIAL IVPUSH ONE (13:50)
[2019-01-15 13:51] LABS: HEMATOCRIT 33.8 % (32.4-45.2); HEMOGLOBIN 11.5 GM/dL (10.7-15.3); MCH 28.5 pg (25.7-33.7); MEAN CELL VOLUME 83.8 fl (80-96); PLATELET COUNT 221 K/MM3 (134-434); RBC 4.04 M/mm3 (3.60-5.2); RDW 13.7 % (11.6-15.6)
--- NOTE | 2019-01-15 14:41 | PN ---
Physical Exam: SUBJECTIVE: Patient seen and examined. She reports lower abdominal pain. Pt went through 2 adult diapers overnight from bleeding which included clots. She reports no change in amount. She denies fever, chills, chest pain, vomiting. OBJECTIVE: Vital Signs Period Temp Pulse Resp BP Sys/Sheldon Pulse Ox Last 24 Hr 98.3 F-98.6 F 72-90 17-20 104-116/42-87 97-98 GENERAL: The patient is awake, alert, and fully oriented, in no acute distress. HEAD: Normal with no signs of trauma. EYES: PERRL, extraocular movements intact, conjunctiva clear. ENT: Ears normal, nares patent, moist mucous membranes. NECK: Trachea midline, full range of motion, supple. LUNGS: Breath sounds equal, clear to auscultation bilaterally, no wheezes HEART: Regular rate and rhythm, no murmur ABDOMEN: Soft, suprapubic tenderness, nondistended, normoactive bowel sounds EXTREMITIES: Warm, well-perfused, no edema. NEUROLOGICAL: Cranial nerves II through XII grossly intact. Normal speech, gait not observed. PSYCH: Normal mood, normal affect. SKIN: Warm, dry, normal turgor Laboratory Results - last 24 hr 01/14/19 01/15/19 01/15/19 15:00 07:45 12:53 WBC 5.2 3.8 L 4.0 RBC 4.06 4.10 4.04 Hgb 11.5 11.6 11.5 Hct 34.6 34.9 33.8 MCV 85.2 84.9 83.8 MCH 28.3 28.4 28.5 MCHC 33.3 33.4 34.0 RDW 14.1 14.3 13.7 Plt Count 211 209 221 MPV 10.6 10.1 10.0 Active Medications Generic Name Dose Route Start Last Admin Trade Name Freq PRN Reason Stop Dose Admin Acetaminophen 650 mg 01/14/19 14:44 01/15/19 11:30 Tylenol - PO 650 mg Q6H PRN Administration PAIN Ferrous Sulfate 325 mg 01/14/19 10:00 01/15/19 09:46 Feosol - PO 325 mg DAILY SUNDEEP Administration Sodium Chloride 1,000 mls @ 100 mls/hr 01/14/19 04:45 01/15/19 11:34 Normal Saline - IV 100 mls/hr ASDIR SUNDEEP Administration Medroxyprogesterone Acetate 10 mg 01/15/19 10:00 01/15/19 11:30 Provera - PO 10 mg DAILY SUNDEEP Administration ASSESSMENT/PLAN: Ms. Talha Matamoros is a 23y/o female with von Willebrand disease and asthma who presents with heavy menstruation x 3 days. #menorrhagia likely 2/2 von Willebrand disease Hb stable. Normotensive and not tachycardic. There has been no change in amount of bleeding overnight. -heme consulted- tranexamic acid 1,000mg today -plant specialist consulted- medroxyprogesterone 10mg daily x 10 days -Tylenol PRN pain -iron supplementation -von Willebrand Ag pending -monitor CBC DVT Ppx SCDs FEN NS 100mL/hr monitor labs regular diet dispo- d/c planned tomorrow if bleeding and Hb stable, and following heme recs Visit type - Emergency Visit Emergency Visit: Yes ED Registration Date: 01/14/19 Care time: The patient presented to the Emergency Department on the above date and was hospitalized for further evaluation of their emergent condition. - New Patient This patient is new to me today: Yes Date on this admission: 01/15/19 - Critical Care Critical Care patient: No - Discharge Referral Referred to [facility] Med P.C[facility] No ATTENDING PHYSICIAN STATEMENT I saw and evaluated the patient. I reviewed the resident's note and discussed the case with the resident. I agree with the resident's findings and plan as documented. SUBJECTIVE: OBJECTIVE: ASSESSMENT AND PLAN:
--- NOTE | 2019-01-15 18:42 | PN ---
Teaching Attending Note Name of Resident: Sherrie Leavitt ATTENDING PHYSICIAN STATEMENT I saw and evaluated the patient. I reviewed the resident's note and discussed the case with the resident. I agree with the resident's findings and plan as documented. SUBJECTIVE: felt light headed this am . no CP or SOB . cont to bleed no change form yesterday OBJECTIVE: NAD comfortable, pale CV: RRR Lungs: CTAB Abd:soft, TTP in suprapubic area. no rebound , nl BS Ext : No edema or erythema A/P : 23 y/o lady with h/o Von Willbrand disease who presented with vaginal bleeding. 1- Vaginal bleeding, due to coagulopathy from VWD - appreciate Dr. Tovar help. cont Medroxyprogesterone x 10 days - case was d/w Dr. Cristobal by team. Recs for one dose of Tranexamic acid today and she will review her records form [place] - follow CBC - will con to monitor since she is symptomatic SCDs
[2019-01-15] MEDS ORDERED: TRANEXAMIC ACID 1000 MG/10 ML VIAL IVPB ONE (19:15)
--- NOTE | 2019-01-15 22:13 | PN ---
Progress Note (short form) - Note Progress Note: patient seen and examined vaginal bleeding has slowed down afvss Cor: RSR, No murmurs, No gallops Lungs: Clear to P&A Abd: Soft, Normal bowel sounds, No organomegaly Ext:No significant edema labs/meds reviewed a/p 23 y/o with h/o ? type IIA vwd, now with menorrhagia. severe. s/p 1 dose dDAVP 30mcg on 01/04 and 1g IVPB tranexamic acid on 01/14 Started provera 10mg daily clinically improved repeat tranexamic acid 1g IVSS Q 8hrs. as needed for bleeding but bleeding seems to have slowed down with provera contact nos. 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
[2019-01-16] MEDS: ACETAMINOPHEN 325 MG TABLET (FP) PO PRN ×2 (00:13→12:53)
[2019-01-16] MEDS: SODIUM CHLORIDE 1,000 ML IV SCH ×2 (02:14→07:11)
[2019-01-16 09:09] LABS: BLOOD UREA NITROGEN 8.4 mg/dL (7-18); CALCIUM 8.5 mg/dL (8.5-10.1); CREATININE 0.6 mg/dL (0.55-1.3); POTASSIUM 3.9 mmol/L (3.5-5.1)
[2019-01-16 10:59] LABS: HEMATOCRIT 32.3 % (32.4-45.2); MCH 28.7 pg (25.7-33.7); MCHC 34.1 g/dl (32.0-36.0); MEAN CELL VOLUME 84.2 fl (80-96); MEAN PLT VOLUME 9.9 fl (7.5-11.1); PLATELET COUNT 215 K/MM3 (134-434); RBC 3.83 M/mm3 (3.60-5.2); RDW 13.7 % (11.6-15.6); WHITE BLOOD COUNT 4.1 K/mm3 (4.0-10.0)
[2019-01-16] MEDS: FERROUS SO4 325 MG TABLET (FP) PO SCH (11:52)
[2019-01-16 11:54] VITALS: BP 121/63; PULSE 76; TEMP 98.3
--- NOTE | 2019-01-16 13:31 | PN ---
Teaching Attending Note Name of Resident: Sherrie Leavitt ATTENDING PHYSICIAN STATEMENT I saw and evaluated the patient. I reviewed the resident's note and discussed the case with the resident. I agree with the resident's findings and plan as documented. SUBJECTIVE: BLEEDING IMPROVED No abd pain OBJECTIVE: NAD comfortable, pale CV: RRR Lungs: CTAB Abd:soft, NT. nl BS Ext : no edema or erythema A/P : 23 y/o lady with h/o Von Willbrand disease who presented with vaginal bleeding. 1- Vaginal bleeding, due to coagulopathy from VWD - cont Medroxyprogesterone x 8 more days ( total of 10 ) . she was made aware of the risk of thromoembolism with this med -HB stable - she was given numbers to follow with heme clinic at [facility]
--- NOTE | 2019-01-16 14:01 | DS ---
Physical Exam: SUBJECTIVE: Patient seen and examined. She reports decreased vaginal bleeding over the last 24 hours. Her abdominal pain is no longer present. OBJECTIVE: Vital Signs Period Temp Pulse Resp BP Sys/Sheldon Pulse Ox Last 24 Hr 97.6 F-98.6 F 76-92 18-20 106-122/49-67 99 PHYSICAL EXAM GENERAL: The patient is awake, alert, and fully oriented, in no acute distress. HEAD: Normal with no signs of trauma. EYES: PERRL, extraocular movements intact, conjunctiva clear. ENT: Ears normal, nares patent, moist mucous membranes. NECK: Trachea midline, full range of motion, supple. LUNGS: Breath sounds equal, clear to auscultation bilaterally, no wheezes HEART: Regular rate and rhythm, no murmur ABDOMEN: Soft, nontender, nondistended, normoactive bowel sounds EXTREMITIES: Warm, well-perfused, no edema. NEUROLOGICAL: Cranial nerves II through XII grossly intact. Normal speech, gait not observed. PSYCH: Normal mood, normal affect. SKIN: Warm, dry, normal turgor LABS Laboratory Results - last 24 hr 01/16/19 01/16/19 07:09 10:42 WBC 4.1 RBC 3.83 Hgb 11.0 Hct 32.3 L MCV 84.2 MCH 28.7 MCHC 34.1 RDW 13.7 Plt Count 215 MPV 9.9 Sodium 139 Potassium 3.9 Chloride 108 H Carbon Dioxide 24 Anion Gap 7 L BUN 8.4 Creatinine 0.6 Est GFR (CKD-EPI)AfAm 151.01 Est GFR (CKD-EPI)NonAf 130.29 Random Glucose 87 Calcium 8.5 HOSPITAL COURSE: Ms. Talha Matamoros is a 23y/o female with von Willebrand disease and asthma who presents with heavy menstruation x 3 days. Pt was treated for menorrhagia 2/2 VWD. Hb remained stable. Tranexamic acid was administered x 2. Pt was also started on medroxyprogesterone 10mg x 10 days. Bleeding decreased following administration. She was instructed to follow up with retanned leather roller for disease management. Date of Admission:01/14/19 Date of Discharge: 01/16/19 Minutes to complete discharge: 35 Discharge Summary Problems reviewed: Yes Reason For Visit: VAGINAL BLEEDING Current Active Problems Vaginal bleeding (Acute) Condition: Improved - Instructions Diet, Activity, Other Instructions: You came to the emergency room with complaints of heavy vaginal bleeding. You were seen by both a applied marine physics professor as well as a retanned leather roller. The OBGYN started you on medication for which you will take for a 8 more days (01/17-01/24) you symptoms improved and you were stable to be discharged home. Please take the medication Medroxyprogesterone for 8 more days (01/17-01/24) Please follow up with Dr. Johnson within one week. Please follow up with the OBGYN Dr. dupont Here is the number for the [facility] hematology Clinic it is important to make an appointment to follow up [facility] clinic --[phone] --to schedule close follow up with hematology If you begin to experience worsening bleeding, headaches, dizziness, chest pains please return to the ER immediately Referrals: Luis Johnson MD [Primary Care Provider] - Fercho Dupont MD [Staff Physician] - 1 Week Disposition: HOME - Home Medications Comprehensive Discharge Medication List: Ambulatory Orders Medroxyprogesterone Acetate [Provera -] 10 mg PO DAILY #8 tablet 01/16/19 This patient is new to me today: No Emergency Visit: Yes ED Registration Date: 01/14/19 Care time: The patient presented to the Emergency Department on the above date and was hospitalized for further evaluation of their emergent condition. Critical Care patient: No - Discharge Referral Referred to [facility] Med P.C.: No ATTENDING PHYSICIAN STATEMENT I saw and evaluated the patient. I reviewed the resident's note and discussed the case with the resident. I agree with the resident's findings and plan as documented. SUBJECTIVE: OBJECTIVE: ASSESSMENT AND PLAN:
== END 2019-01-16 14:42 | disposition home or self-care (01) | DRG 532 ==
LOC: JER 00:50 → JERBED 03:23 → OBSVTOIN 04:34 → J5S 11:06
PROVIDERS: ADMIT Internal Medicine; ATTEND Internal Medicine
PROC: 3E033GC Introduction of Other Therapeutic Substance into Peripheral Vein, Percutaneous Approach (ICD-10-PCS; principal; 2019-01-14)
PROC: 3E033GC Introduction of Other Therapeutic Substance into Peripheral Vein, Percutaneous Approach (ICD-10-PCS; 2019-01-14)
PROC: 3E02340 Introduction of Influenza Vaccine into Muscle, Percutaneous Approach (ICD-10-PCS; 2019-01-14)
DX: N92.1 Excessive and frequent menstruation with irregular cycle (principal); N93.9 Abnormal uterine and vaginal bleeding, unspecified; D68.0 Von Willebrand disease; J45.909 Unspecified asthma, uncomplicated; Z91.018 Allergy to other foods; Z23 Encounter for immunization
CPT/HCPCS: 36415; 76830-TC; 80048; 80053; 84703; 85025; 85027; 85246; 85610; 85730; 86850; 86870; 86900; 86901; 86902; 90471; 96365; 96375; 99284-25; G0378; J2597; J7030; Q2036

== ENCOUNTER 2020-07-20 21:34 | Emergency (ER) | payer OTHER ==
[2020-07-20 21:51] VITALS: TEMP 98.9; BMI 34.9
[2020-07-20] MEDS ORDERED: ALBUTEROL SO4 2.5/IPRATROPIUM 0.5 INH SOL 3 ML VIAL.NEB. NEB ONE ×2 (22:23→22:50)
[2020-07-20 23:13] LABS: EOS % 14.2 % (0-4.5); HEMATOCRIT 40.4 % (32.4-45.2); HEMOGLOBIN 13.1 GM/dL (10.7-15.3); LYMPH % 41.2 % (8-40); MCH 25.6 pg (25.7-33.7); MCHC 32.5 g/dl (32.0-36.0); MEAN CELL VOLUME 78.7 fl (80-96); MEAN PLT VOLUME 10.7 fl (7.5-11.1); MONO % 11.1 % (3.8-10.2); NEUT % 32.5 % (42.8-82.8); PLATELET COUNT 291 K/MM3 (134-434); RBC 5.13 M/mm3 (3.60-5.2); RDW 16.3 % (11.6-15.6); WHITE BLOOD COUNT 5.8 K/mm3 (4.0-10.0)
[2020-07-20 23:33] LABS: CHLORIDE 104 mmol/L (98-107); SODIUM 139 mmol/L (136-145)
[2020-07-20 23:34] LABS: CALCIUM 9.3 mg/dL (8.5-10.1)
[2020-07-20 23:35] LABS: ALBUMIN 4.4 g/dl (3.4-5.0); ANION GAP 7 MMOL/L (8-16); BLOOD UREA NITROGEN 12.1 mg/dL (7-18); CO2 28 mmol/L (21-32); GLUCOSE,RANDOM 78 mg/dL (74-106)
[2020-07-20 23:38] LABS: CREATININE 0.9 mg/dL (0.55-1.3); SGOT/AST 26 U/L (15-37); SGPT/ALT 31 U/L (13-61)
[2020-07-20 23:39] LABS: BILIRUBIN,TOTAL 0.3 mg/dL (0.2-1)
[2020-07-20 23:40] LABS: TOT PROT 9.2 g/dl (6.4-8.2)
[2020-07-20 23:41] LABS: ALK PHOS 95 U/L (45-117)
[2020-07-21] MEDS ORDERED: DEXAMETHASONE LIQUID 0.5 MG/5 ML PO ONE (00:36)
[2020-07-21 00:38] VITALS: BP 115/75; PULSE 89
[2020-07-21] MEDS ORDERED: DEXAMETHASONE SOD PHOSPHATE 10 MG/1 ML VIAL ONE (00:40)
[2020-07-22 04:08] LABS: SARS-CoV-2 NAA Not Detected (Not Detected)
== END 2020-07-21 00:54 | disposition home or self-care (01) ==
LOC: JER 21:34
PROC: 3E0F7GC Introduction of Other Therapeutic Substance into Respiratory Tract, Via Natural or Artificial Opening (ICD-10-PCS; principal; 2020-07-20)
DX: J06.9 Acute upper respiratory infection, unspecified (principal); J45.909 Unspecified asthma, uncomplicated; Z11.52 Encounter for screening for COVID-19
CPT/HCPCS: 36415; 71045-TC-FY; 80053; 84702; 85025; 85379; 93005; 93010; 99285-25; C9803; U0003; U0005